=== PATIENT | male | born 1995 | race Caucasian/White ===

== ENCOUNTER 2019-08-26 15:50 | Emergency (ER) | payer SELFPAY ==
[2019-08-26 15:52] VITALS: BP 163/100; PULSE 119; RESP 18; TEMP 37.2; O2SAT 98; BMI 24.5
--- NOTE | 2019-08-26 17:20 | ED.VIS.GEN ---
History of Present Illness Chief Complaint: Upper Extremity Injury Informant: Patient Onset: Month(s) - 3 Context: Gradual Onset Timing: Intermittent Narrative: Patient is a 23-year-old male presenting with concerns of redness in his hands as well as feeling cold in his hands. This been going on for the past 3 months intermittently. He does not have associated pain, numbness or difficulty using his hands. Patient notes that when he puts his hands down the seem more red and they feel cold all the time. Patient is very concerned that there might be something more severe wrong with him which is why he came in. He notes he does have anxiety and is not sure if his anxiety is associated with his concern for his hands. He does not see a doctor regularly. He does have a history of alcohol abuse but stopped drinking of few months ago. He denies any tobacco or illicit drug use. He denies any systemic symptoms such as chest pain, shortness of breath, fever, chills, rash, GI or symptoms. Past Medical History - Allergies and Home Meds Allergies/Adverse Reactions: Allergies No Known Allergies Allergy (Verified 08/26/19 15:51) Primary Care Physician: Care Physician,No Primary [Primary Care Provider] - Past Medical History: None Surgical History: noncontributory Smoking Status: Current every day smoker Review of Systems All systems negative except as indicated Skin: Reports: - - Redness in his hands Physical Exam Vital Signs/Narrative: Vital Signs Temp Pulse Resp BP Pulse Ox 08/26/19 15:52 98.9 F 119 H 18 163/100 H 98 Inital Vital Signs reviewed: Yes General: Well nourished, Well developed, No Acute Distress Head: Normocephalic, Atraumatic Eyes: Perrl, EOMI ENT: Moist mucous membranes, No rhinorrhea Neck: Supple, Nontender Cardiovascular: Regular rate, Regular rhythm, No murmurs Respiratory: No distress, CTA bilaterally, Chest nontender Abdomen: Soft, Nontender, Nondistended, Normal bowel sounds Back: Nontender, Normal Inspection Extremities: Nontender, No edema Skin: Normal color, No rash, - - Wrist capillary refill, no cyanosis or pallor. Slightly more pronounced plethora of the hands but otherwise normal-appearing Neurological: Alert, Oriented x3, Cranial nerves II-XII grossly intact, Normal Strength, Normal Sensation Psychological: Normal affect, - - Anxious Diagnostic/Tx/Re-eval Laboratory Data 08/26/19 08/26/19 17:30 17:35 WBC 11.7 H RBC 5.02 Hgb 14.9 Hct 44.8 MCV 89.2 MCH 29.7 MCHC 33.3 RDW Std Deviation 42.0 RDW Coeff of Ana Paula 12.9 Plt Count 247 MPV 11.3 Immature Gran % (Auto) 0.300 Neut % (Auto) 72.8 H Lymph % (Auto) 20.5 Isabella % (Auto) 5.7 Eos % (Auto) 0.3 Baso % (Auto) 0.4 Absolute Neuts (auto) 8.5 H Absolute Lymphs (auto) 2.39 Nucleated RBC % 0 Sodium 140 Potassium 3.5 Chloride 109 H Carbon Dioxide 28.0 Anion Gap 3 L BUN 10 Creatinine 0.85 Estim Creat Clear Calc 139.56 Est GFR (MDRD) Af Amer 142 Est GFR (MDRD) Non-Af 118 BUN/Creatinine Ratio 11.8 Glucose 102 Calcium 8.9 TSH 0.83 - Medical Decision Making Patient is evaluated for concern of cold hands and redness in his hands. He appears nontoxic and in no acute distress. Patient is anxious but otherwise behaving normally. Physical exam is benign. He does have plethora of his hands when he brings him down to his side and then it improves when he raises his hand. I do not suspect any emergent process. I suspect this is a normal physiologic reaction. I am concerned that patient might be anxious and is fixated on these changes. Patient does not regularly see a doctor some screening labs are obtained including a TSH CBC and BMP. Patient is initially tachycardic. He has no signs of infection. TSH is normal. CBC shows only a minimally elevated white blood cell count. He does not have symptoms consistent with polycythemia. BMP is also grossly normal. Patient be discharged home with referral to PCP for outpatient follow-up. He is given a work note for today as he missed his shift to be here. Patient is counseled on signs and symptoms requiring return to the emergency room. Patient verbalizes agreement and understand this plan. Patient discharged home in stable and improved condition. ED Disposition - Plan for ED Patient: Disposition: Home or Assisted Living Diagnosis: Other skin changes Referrals: Care Physician,No Primary [Primary Care Provider] - Sloan Chavez MD [NON-STAFF] - Additional Instructions: Your lab work came back normal. I am not concerned for the this in your hands at this time. Please follow-up further with your primary care provider. Please quit smoking. Return to emergency room if you have further complaints or concerns.
[2019-08-26 17:35] LABS: Absolute Lymphocyte Count 2.39 X10^3/uL (0.83-4.51); Absolute Neutrophil Count 8.5 X10^3/uL (2.0-7.7); Basophil# 0.05 X10^3/uL; Basophil% 0.4 % (0-1); Eosinophil# 0.04 X10^3/uL; Eosinophils% 0.3 % (0-5); Hematocrit 44.8 % (40-54); Hemoglobin 14.9 g/dL (13.0-16.5); Lymphocyte # 2.39 X10^3/ul (4.0); Lymphocyte % 20.5 % (19-41); Mean Corp Hgb Conc 33.3 g/dL (32-36); Mean Corpuscular Hgb 29.7 pg (27.0-32.0); Mean Corpuscular Volume 89.2 fL (80-94); Mean Platelet Vol. 11.3 fl (6.2-12.0); Monocyte# 0.67 X10^3/uL; Monocyte% 5.7 % (0-10); NRBC Flagged by Analyzer 0 % (0-5); Neutrophil # 8.48 X10^3/uL (2.7-7.7); Neutrophil % 72.8 % (47-70); Platelet Count 247 K/mm3 (150-450); RBC Distribution Width CV 12.9 % (11.6-14.6); Red Blood Count 5.02 M/mm3 (4.6-6.2); White Blood Count 11.7 K/mm3 (4.4-11.0)
[2019-08-26 18:26] LABS: Anion Gap 3 (5-15); BUN 10 mg/dL (7-18); BUN/Creat Ratio 11.8 RATIO (10-20); Calcium,Total 8.9 mg/dL (8.5-10.1); Chloride 109 mmol/L (98-107); Creatinine, Serum 0.85 mg/dL (0.70-1.30); EST Glomerular Filtration Rate 118 mL/min (>60); Est Glom Filt Rate - Afr Amer 142 mL/min (>60); Estimated Creatinine Clearance 139.56 ml/min; Glucose 102 mg/dL (74-106); Potassium 3.5 mmol/L (3.5-5.1); Sodium Level 140 mmol/L (136-145); Thyroid Stim Hormone (TSH) 0.83 uIU/mL (0.358-3.74)
== END 2019-08-26 19:22 | disposition home or self-care (01) ==
PROVIDERS: Emergency Provider Emergency Medicine
DX: R23.9 Unspecified skin changes (principal); L53.9 Erythematous condition, unspecified; R00.0 Tachycardia, unspecified; F41.9 Anxiety disorder, unspecified
CPT/HCPCS: 36415; 80048; 84443; 85025; 99282

== ENCOUNTER 2019-09-01 23:55 | Emergency (ER) | payer OTHER, SELFPAY ==
[2019-09-01 23:57] VITALS: BP 134/80; PULSE 85; RESP 16; TEMP 36.6; O2SAT 100; BMI 26.6
--- NOTE | 2019-09-02 00:06 | ED.RN ---
CALLED [phone], NUMBER GIVEN BY PT TO ASK THE EVENT DECORATOR AND DESIGNER ON [facility] IF A DRUG TEST WAS NEEDED, I WAS UNABLE TO GET AN ANSWER. MESSAGE WAS LEFT WITH SUMA SOTO WITH HR
--- NOTE | 2019-09-02 00:13 | RAD_ITS ---
HISTORY: Smashed thumb at work. 3 images of the right thumb. No comparison imaging. Findings: Bony alignment is normal. Joint spaces are preserved. Cortices are intact. RAD/Finger(s) Min 2 Views IMPRESSION: Normal. at 0044 Reported and signed by: Butch Birmingham MD Electronically Signed: Butch Birmingham MD at 0:43 EDT Tel , Service support ,
--- NOTE | 2019-09-02 00:41 | ED.VIS.UPPEX ---
History of Present Illness Chief Complaint: Laceration Informant: Patient Occurred: Today - TRISHA Mechanism/Context: Injury, Work Related Context: Sudden Onset - caught in machine, crushed distal phalanx of right thumb Quality of Pain: Aching Location: R thumb Current Severity: Moderate Maximum Severity: Moderate Worsened by: palpation, moving Relieved by: remaining still Associated Symptoms: Negative for: Parasthesia, Weakness, Loss of Funtion Narrative: Accidentally caught in a machine at work. [id number]. Minor bleeding from wound. Tetanus Immunization: <5 years Past Medical History - Allergies and Home Meds Allergies/Adverse Reactions: Allergies No Known Allergies Allergy (Verified 09/01/19 23:59) Primary Care Physician: Care Physician,No Primary [Primary Care Provider] - Surgical History: noncontributory Smoking Status: Current every day smoker Drugs: None Review of Systems General: Denies: Chills, Fever Musculoskeletal: Reports: Extremity Pain. Denies: Swelling Skin: Reports: Wounds. Denies: Rash Neurological: Denies: Weakness, Parasthesia Physical Exam Vital Signs/Narrative: Vital Signs Temp Pulse Resp BP Pulse Ox 09/01/19 23:57 97.9 F 85 16 134/80 H 100 General: Well nourished, Well developed, - - Well-appearing, NAD Head: Normocephalic, Atraumatic Extremeties: Mild tenderness distal phalanx right thumb. Normal full function of extensor and flexors within the digit. No IP joint tenderness or other bony tenderness throughout the hand. Nail is normal. Abrasion to the radial aspect of the nail as well. Skin: Trauma - Superficial 1 cm curved laceration to the ulnar aspect of the distal phalanx/pad of the right thumb. More of an abrasion than laceration. Some nearby bruising. No subungual hematoma. Neurological: Alert, Oriented x3, Cranial nerves II-XII grossly intact, Normal Strength, Normal Sensation Psychological: Normal affect, Normal Mood Diagnostic/Tx/Re-eval On my interpretation, 3 view x-ray of the right thumb are normal showing no fracture. - Medical Decision Making X-rays are unremarkable. I do not think any of this needs repaired. There is no subungual hematoma or sign of nailbed laceration or indication to remove the nail. He is given ibuprofen and his wound is cleansed, dressed with bacitracin, given appropriate work restrictions and follow-up. ED Disposition - Plan for ED Patient: Disposition: Home or Assisted Living Diagnosis: Abrasion of right thumb, Contusion of right thumb Instructions: LACERATION, Small/superficial, Not sutured [facility]errals: [facility]] - 2 Days for wound check Additional Instructions: Keep covered with antibiotic ointment while working.
[2019-09-02 00:56] VITALS: PULSE 18
== END 2019-09-02 01:07 | disposition home or self-care (01) ==
PROVIDERS: Emergency Provider Emergency Medicine
DX: S60.311A Abrasion of right thumb, initial encounter (principal); S60.011A Contusion of right thumb without damage to nail, initial encounter; W31.9XXA Contact with unspecified machinery, initial encounter; Y93.9 Activity, unspecified; Y92.9 Unspecified place or not applicable; F17.200 Nicotine dependence, unspecified, uncomplicated
CPT/HCPCS: 73140; 99282

== ENCOUNTER 2022-02-12 13:06 | Emergency (ER) | payer SELFPAY ==
[2022-02-12 13:07] VITALS: BP 159/109; PULSE 160; RESP 15; TEMP 37.7; O2SAT 99; BMI 31.1
--- NOTE | 2022-02-12 13:14 | ED.RN ---
PT HR 146 AND SUSTAINING. MD AT BEDSIDE. ISA MORENO RT AT BEDSIDE. 1000 NS OPEN 20G LAC 6 MG ADENOCARD 1314 IVP AND FLUSH. HR 159, BP 180/101, O2 99% 12 MG ADENOCARD 1318 IVP AND FLUSH. HR 167 12 MG ADENOCARD 1320 IVP AND FLUSH. HR 173, BP 177/97 1323 HR 140
--- NOTE | 2022-02-12 13:24 | EKG12_ITS ---
Test Reason : TACHY Blood Pressure : / mmHG Vent. Rate : 144 BPM Atrial Rate : 144 BPM P-R Int : 130 ms QRS Dur : 088 ms QT Int : 280 ms P-R-T Axes : 052 058 065 degrees QTc Int : 433 ms Sinus tachycardia Nonspecific ST abnormality Abnormal ECG Confirmed by PEGGY NICHOLSON, MICK ([id number]), index editor RENNY PACHECO ([id number]) on 02/14/2022 12:59:05 P M Referred By: KAMARI Confirmed By:DORI WOODS MD
--- NOTE | 2022-02-12 13:25 | EX.ED.DYSGE1 ---
HPI History of Present Illness Chief Complaint: Palpitations Narrative Narrative: Patient who denies significant past medical history presents with palpitations and rapid heart rate. He states that this is happened to him previously, but it usually resolves on its own after he paces at work. One time it lasted a few hours. 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 At first, he felt his heart skipping a beat, but now he feels fast palpitations. He denies any chest pain or shortness of breath. No leg swelling. No exacerbating or alleviating factors. Of note, he does state that he drinks alcohol on a daily basis, his last drink was last evening. He has been a daily drinker of alcohol for the last 3 years. He presents because of the rapid heart rate and palpitations. [facility] Home Medications NK 08/26/19 [History Last Taken Unknown] Allergy/AdvReac Type Severity Reaction Status Date / Time No Known Allergies Allergy Verified 09/01/19 23:59 Social History Smoking Status: Current every day smoker tobacco type: cigarettes ROS ROS ED ROS Narrative Constitutional: No fever, no chills. HEENT: No sore throat. No neck pain. No loss of vision. No rhinorrhea. Cardiovascular: No chest pain. Positive palpitations and rapid heart rate. Initially, felt heart skipping a beat. No pedal edema. Respiratory: No cough, no shortness of breath. Abdominal: No abdominal pain. No nausea. No vomiting. Genitourinary: No dysuria. No hematuria. Musculoskeletal: No myalgias. No arthralgias. Neurologic: No headaches. No dizziness. No lightheadedness. Skin: No rash. No change in color. Psychiatric: No depression. No anxiety. EXAM Physical Exam Narrative Exam Narrative: Afebrile. Vital signs noted. HEENT: Normocephalic. Atraumatic. PERRL, EOMI. Neck soft and supple. No point tenderness or step off. Cardiovascular: Regular tachycardia in the 150s to 160s, no murmurs, rubs, or gallops appreciated. Respiratory: No tachypnea. Lungs clear to auscultation bilaterally. Gastrointestinal: Abdomen soft, nontender, with normoactive bowel sounds. No rebound or guarding. Neurological: Awake. Alert. Nonfocal, nonlateralizing. Skin: No rash. Normal color. No pallor. Musculoskeletal: No pedal edema. Full range of motion extremities. Const Vital Signs: 02/12/22 13:07 02/12/22 13:29 02/12/22 13:31 Temperature 99.9 F H Temperature Source Temporal Pulse Rate 160 H 125 H Respiratory Rate 15 19 H Blood Pressure 159/109 H 178/97 H Blood Pressure Mean 125 124 Pulse Ox 99 99 Oxygen Delivery Method Room Air Room Air Room Air 02/12/22 14:09 02/12/22 15:07 Temperature Temperature Source Pulse Rate 100 94 Respiratory Rate 14 17 Blood Pressure 134/106 H 140/75 H Blood Pressure Mean 115 96 Pulse Ox 98 98 Oxygen Delivery Method Room Air Room Air MDM MDM MDM Narrative Medical decision making narrative: Upon arrival to the room, he was placed on a advertising strategist. His heart rate was in the 150s to 160s. He was given 6 of Adenocard with no resultant change. There was a slight increase in his heart rate to the 170s. An additional 12 mg was given x2. It appears on a rhythm strip that he slowed down for a brief moment and it appeared sinus in nature, but his heart rate did not break. He is not hypotensive. Comprehensive work-up was pursued. He will be given a beta-glenys in the form of Lopressor in attempt to slow his heart rate down. There could be some anxiety component with this versus alcohol withdrawal, versus dehydration. Patient has a leukocytosis with a white count elevated at 26.9. His hemoglobin is normal at 16.1 with a hematocrit of 46.2. His lymphocyte count is normal but he has elevated absolute neutrophils and absolute lymphocytes. D-dimer is negative at 0.34. His electrolyte panel is grossly unremarkable except for glucose of 122 with a normal anion gap of 9. Troponin is less than 3. BNP is also negative. Urinalysis negative for leukocytes and nitrites, no ketones. Chest x-ray interpreted by myself shows no acute process. Given his leukocytosis, I am unsure as to where this is originating. I did CT his abdomen and pelvis because he states he was having diarrhea. This shows no acute process. Furthermore, his abdomen remains soft. His blood pressure has come down well with his heart rate which appears to be normal sinus on the monitor. It is 86 bpm. I do feel that there is some component of anxiety related to this. Regardless, given his leukocytosis I discussed this with Dr. Lyon. Blood cultures will be obtained. Patient feels well and would like to be discharged. I stressed the importance of following up with hematology for repeat blood work in 1 week. Return instructions to the emergency department were reviewed. Disposition is discharged home in stable condition. Of note, the patient did state he was a daily alcohol drinker. I did offer him detox. He declined. He was told to return to the emergency department at any time should he change his mind. Lab Data Attestation: I reviewed the patient's lab results. Labs: Laboratory Results - last 24 hr 02/12/22 02/12/22 02/12/22 13:10 13:10 13:10 WBC 26.9 H RBC 5.16 Hgb 16.1 Hct 46.2 MCV 89.5 MCH 31.2 MCHC 34.8 RDW Std Deviation 41.7 RDW Coeff of Ana Paula 12.5 Plt Count 346 MPV 11.1 Immature Gran % (Auto) 0.500 Neut % (Auto) 68.2 Lymph % (Auto) 23.5 Riley % (Auto) 6.6 Eos % (Auto) 0.9 Baso % (Auto) 0.3 Absolute Neuts (auto) 18.4 H Absolute Lymphs (auto) 6.34 H Nucleated RBC % 0 Diff Path Review May foll Platelet Estimate ADEQUATE RBC Morphology NORM C+C D-Dimer Quant (PE/DVT) 0.34 Sodium 139 Potassium 3.5 Chloride 106 Carbon Dioxide 24.0 Anion Gap 9 BUN 10 Creatinine 0.97 Estim Creat Clear Calc 119.16 Est GFR (MDRD) Af Amer 120 Est GFR (MDRD) Non-Af 99 BUN/Creatinine Ratio 10.3 Glucose 122 H Calcium 9.6 Troponin I High Sens B-Natriuretic Peptide Urine Color Urine Clarity Urine pH Ur Specific [place] Urine Protein Urine Glucose (UA) Urine Ketones Urine Occult Blood Urine Nitrite Urine Bilirubin Urine Urobilinogen Ur Leukocyte Esterase 02/12/22 02/12/22 02/12/22 13:10 13:10 15:20 WBC RBC Hgb Hct MCV MCH MCHC RDW Std Deviation RDW Coeff of Ana Paula Plt Count MPV Immature Gran % (Auto) Neut % (Auto) Lymph % (Auto) Riley % (Auto) Eos % (Auto) Baso % (Auto) Absolute Neuts (auto) Absolute Lymphs (auto) Nucleated RBC % Diff Path Review Platelet Estimate RBC Morphology D-Dimer Quant (PE/DVT) Sodium Potassium Chloride Carbon Dioxide Anion Gap BUN Creatinine Estim Creat Clear Calc Est GFR (MDRD) Af Amer Est GFR (MDRD) Non-Af BUN/Creatinine Ratio Glucose Calcium Troponin I High Sens < 3 L B-Natriuretic Peptide < 2.0 Urine Color Yellow Urine Clarity Clear Urine pH 6.5 Ur Specific [place] 1.010 Urine Protein 15 H Urine Glucose (UA) Normal Urine Ketones Negative Urine Occult Blood Negative Urine Nitrite Negative Urine Bilirubin Negative Urine Urobilinogen Normal Ur Leukocyte Esterase Negative Radiography Diagnostic Testing: Clinical Impression(s) from Imaging Studies Chest X-Ray 02/12/22 13:48 IMPRESSION: Normal x-ray examination of the chest. Electronically Signed: Edilberto Valenzuela MD at 14:00 EDT , Abdomen/Pelvis CT 02/12/22 14:12 IMPRESSION: Mild hepatomegaly and diffuse fatty infiltration of the liver. Electronically Signed: Edilberto Valenzuela MD at 14:41 EDT , Discharge Plan Triage Chief Complaint: Palpitations ED Provider: Rob Black Dx/Rx/DC Orders Clinical Impression: Palpitations, Sinus tachycardia, Leukocytosis, PAT (paroxysmal atrial tachycardia) Instructions: ED Palpitations, ED Tachycardia: PAT Prescriptions: No Action NK RF: 0 Primary Care Provider: Care Physician,No Primary Referrals: Paul Lyon MD [NON-STAFF] - 1 Week Care Physician,No Primary [Primary Care Provider] - Activity Restrictions/Additional Instructions: You had an elevated WBC count today. Please follow-up with Dr. Lyon in 1 week for repeat blood work. Disposition Disposition: Home, Self Care
[2022-02-12 13:29] VITALS: BP 178/97; PULSE 125; RESP 19; O2SAT 99
[2022-02-12] MEDS: 0.9% Normal Saline 1,000 ML 1000 ML IV (13:32)
[2022-02-12 13:38] LABS: Absolute Lymphocyte Count 6.34 X10^3/uL (0.83-4.51); Absolute Neutrophil Count 18.4 X10^3/uL (2.0-7.7); Basophil# 0.09 X10^3/uL; Basophil% 0.3 % (0-1); Eosinophil# 0.23 X10^3/uL; Eosinophils% 0.9 % (0-5); Hematocrit 46.2 % (40-54); Hemoglobin 16.1 g/dL (13.0-16.5); Lymphocyte # 6.34 X10^3/ul (0.83-4.51); Lymphocyte % 23.5 % (19-41); Mean Corp Hgb Conc 34.8 g/dL (32-36); Mean Corpuscular Hgb 31.2 pg (27.0-32.0); Mean Corpuscular Volume 89.5 fL (80-94); Mean Platelet Vol. 11.1 fl (6.2-12.0); Monocyte# 1.77 X10^3/uL; Monocyte% 6.6 % (0-10); NRBC Flagged by Analyzer 0 % (0-5); Neutrophil # 18.37 X10^3/uL (2.7-7.7); Neutrophil % 68.2 % (47-70); POSITIVE DIFFERENTIAL YES; Platelet Count 346 K/mm3 (150-450); RBC Distribution Width CV 12.5 % (11.6-14.6); RBC Distribution Width SD 41.7 fl (35.1-43.9); Red Blood Count 5.16 M/mm3 (4.6-6.2); White Blood Count 26.9 K/mm3 (4.4-11.0)
[2022-02-12 13:45] LABS: Differential Indicated SCAN CRITERIA MET
[2022-02-12] MEDS: Metoprolol Tartrate 5 MG/5 ML Vial IV (13:48)
--- NOTE | 2022-02-12 13:48 | RAD_ITS ---
STUDY: X-RAY CHEST REASON FOR EXAM: Male, 26 years old. Chest pain TECHNIQUE: Single AP portable view of the chest. COMPARISON: None. FINDINGS: EKG electrodes are seen. The lungs are clear and expanded. There is no demonstrated pleural abnormality. Normal size heart. Normal mediastinum and allie. Normal visualized pulmonary arteries. Normal visualized aortic arch and descending thoracic aorta. Normal visualized thoracic spine. Normal visualized ribs, clavicles, and shoulders. There is no demonstrated abnormality of the visualized soft tissue structures of the upper abdomen. RAD/Chest 1 View (Portable) IMPRESSION: Normal x-ray examination of the chest. Electronically Signed: Edilberto Valenzuela MD at 14:00 EDT ,
[2022-02-12 13:50] LABS: D-Dimer Quantitative (DVT/PE) 0.34 FEU/ug/m (0.27-0.49)
[2022-02-12 13:51] LABS: Anion Gap 9 (5-15); BUN 10 mg/dL (7-18); BUN/Creat Ratio 10.3 RATIO (10-20); Calcium,Total 9.6 mg/dL (8.5-10.1); Chloride 106 mmol/L (98-107); Creatinine, Serum 0.97 mg/dL (0.70-1.30); EST Glomerular Filtration Rate 99 mL/min (>60); Est Glom Filt Rate - Afr Amer 120 mL/min (>60); Estimated Creatinine Clearance 119.16 ml/min; Glucose 122 mg/dL (74-106); Potassium 3.5 mmol/L (3.5-5.1); Sodium Level 139 mmol/L (136-145)
--- NOTE | 2022-02-12 13:52 | ED.RN ---
1345: CRISTEL BENITES. GIVE 1 DOSE OF METOPROLOL AND REPORT PTS HR BEFORE ADMIN 2ND OR 3RD DOSE
--- NOTE | 2022-02-12 13:59 | ED.RN ---
1358: VORB PER KAMARI, HOLD DOSE 2 AND 3 OF SCHEDULED METOPROLOL. PT HR CURRENTLY 100
[2022-02-12 14:02] LABS: Troponin-I HS (w/2H Reflex) < 3 pg/mL (3.0-78.0)
[2022-02-12 14:03] LABS: BNP,B-Type NATRIURETIC PEPTIDE < 2.0 pg/mL (0-100)
[2022-02-12 14:09] VITALS: BP 134/106; PULSE 100; RESP 14; O2SAT 98
--- NOTE | 2022-02-12 14:12 | CT_ITS ---
STUDY: CT ABDOMEN AND PELVIS WITH CONTRAST REASON FOR EXAM: Male, 26 years old. Abdominal pain and diarrhea. Palpitations. RADIATION DOSAGE (If Supplied By Facility): CTDIvol = ( 16.145 ) mGy, DLP = ( 1256.72 ) mGycm TECHNIQUE: Transaxial images were obtained from the dome of the diaphragm to the symphysis pubis without oral contrast. IV 100mL Isovue-370 was administered. Sagittal and coronal images were reconstructed. Individualized dose optimization techniques were used for this CT. COMPARISON: None. FINDINGS: Minimal degree of increased markings at the lung bases suggestive of dependent bibasilar atelectasis. The visualized portions of the heart are within normal limits. There is decreased attenuation of the liver consistent with steatosis. Mild hepatomegaly. Normal gallbladder and extrahepatic biliary system. Normal spleen. Normal pancreas. Normal bilateral adrenal glands. Normal right kidney. Normal left kidney. Normal visualized stomach. Normal small intestine. Moderate amount of fecal material is seen in colon. Lack of oral contrast limits the evaluation of the colon. The appendix is visualized and appears normal. Normal abdominal aorta. Normal inferior vena cava. Normal retroperitoneum. Distended urinary bladder. There is a small umbilical hernia containing fat. Normal osseous structures. CT/Abdomen/Pelvis W IV Cont ONLY IMPRESSION: Mild hepatomegaly and diffuse fatty infiltration of the liver. Electronically Signed: Edilebrto Valenzuela MD at 14:41 EDT ,
[2022-02-12 14:13] LABS: Platelet Estimate ADEQUATE (ADEQ); Red Cell Morphology NORM C+C NORMAL (NORM C&C)
--- NOTE | 2022-02-12 14:35 | NURSING ---
NO OLD EKGS
[2022-02-12 15:07] VITALS: BP 140/75; PULSE 94; RESP 17; O2SAT 98
[2022-02-12] MEDS: 0.9% Normal Saline 1,000 ML 999 ML IV (15:27)
[2022-02-12 15:28] LABS: Bacteria 0 SEEN /hpf (None Seen); Mucous, Urine 0 SEEN /hpf (<or=2+); Red Blood Cells-Urine 0 SEEN /hpf (0-5); Squamous Epithelial Cells - UA 0 SEEN /hpf (0-5); White Blood Cells 0 SEEN /hpf (0-5)
[2022-02-12 15:33] LABS: Color, Urine Yellow (Yellow); Glucose, Dipstick Normal (Normal); Ketone-Dipstick Negative (Negative); Leukocyte Esterase-Dipstick Negative /ul (Negative); Nitrite-Dipstick Negative (Negative); Occult Blood-Urine Negative /ul (Negative); Protein-Dipstick 15 mg/dl (Negative); Urine Bilirubin Dipstick Negative (Negative); Urine Clarity Clear (Clear); Urine Urobilinogen Normal (Normal); Urine pH 6.5 (5.0 - 8.0)
[2022-02-12 15:41] LABS: Reflex Troponin-HS? (from REC) Y
[2022-02-12 16:31] VITALS: BP 127/73; PULSE 86; RESP 18; O2SAT 99
[2022-02-12 16:37] VITALS: BP 127/73; PULSE 85; RESP 16; O2SAT 97
[2022-02-13 11:58] LABS: Pathologist Review Reviewed
== END 2022-02-12 16:39 | disposition home or self-care (01) ==
PROVIDERS: Emergency Provider Emergency Medicine; Visit Provider Emergency Medicine
DX: I47.1 Supraventricular tachycardia (principal); D72.829 Elevated white blood cell count, unspecified; R19.7 Diarrhea, unspecified; F41.9 Anxiety disorder, unspecified; F17.210 Nicotine dependence, cigarettes, uncomplicated
CPT/HCPCS: 71045; 74177; 80048; 81001; 83880; 84484; 85025; 85379; 87040; 93005; 96360; 96361; 99284; J7030; A4216; J0153

== ENCOUNTER 2022-03-02 08:42 | Emergency (ER) | payer MEDICAID, SELFPAY ==
[2022-03-02 08:43] VITALS: BP 154/84; PULSE 120; RESP 16; TEMP 36.7; O2SAT 97; BMI 31.6
--- NOTE | 2022-03-02 09:03 | EKG12_ITS ---
Test Reason : PALP Blood Pressure : / mmHG Vent. Rate : 111 BPM Atrial Rate : 111 BPM P-R Int : 146 ms QRS Dur : 090 ms QT Int : 334 ms P-R-T Axes : 057 055 068 degrees QTc Int : 454 ms Sinus tachycardia with occasional Premature ventricular complexes Otherwise normal ECG Confirmed by ANITA NICHOLSON, JONATAN ([id number]), fan mail editor RENNY PACHECO ([id number]) on 03/03/2022 1:14:25 PM Referred By: Confirmed By:JONATAN HOWARD MD
--- NOTE | 2022-03-02 09:05 | EX.ED.DYSGE1 ---
HPI History of Present Illness Chief Complaint: Palpitations Informant: patient Onset/Context/Timing Onset: Weeks Context: Gradual Onset Narrative Narrative: Patient presents secondary to palpitations. He states years ago he had developed palpitations but really had not had issues into the last month. He was seen in the emergency room approximately 2-1/2 weeks ago with heart rate around 160. He was given adenosine with no significant improvement. He was given beta-glenys and IV fluids and his heart rate came down into the 80s. He states he continues to have some intermittent palpitations. No chest pain. He has been cutting back on his alcohol consumption. He quit smoking. [facility] Medical History no medical history no medical history Home Medications NK 08/26/19 [History Last Taken Unknown] Allergy/AdvReac Type Severity Reaction Status Date / Time No Known Allergies Allergy Verified 03/02/22 08:44 Social History (Updated 03/02/22 @ 09:[address] Tamar Adrian MD) Smoking Status: Former smoker ROS ROS ED Constitutional Constitutional ED: Denies chills or fever(s) Eyes Eyes: Denies change in vision ENT ENT ED: Denies sore throat Cardiovascular Cardiovascular: Reports palpitations and racing heartbeat; Denies chest pain Respiratory/Chest Respiratory/Chest: Denies cough or dyspnea Gastrointestinal Gastrointestinal: Denies abdominal pain, nausea or vomiting Genitourinary Genitourinary ED: Denies dysuria Musculoskeletal Musculoskeletal: Denies back pain or neck pain Integumentary Denies rash Neurologic Neurologic: Denies headache(s) or weakness Psychiatric Psychiatric: Reports anxiety Allergic/Immunologic Allergic/Immunologic ED: Denies urticaria EXAM Physical Exam Const Vital Signs: 03/02/22 08:43 03/02/22 09:14 03/02/22 10:18 Temperature 98.0 F Temperature Source Temporal Pulse Rate 120 H 74 Respiratory Rate 16 Respiratory Effort Normal Non-Labored Respiratory Pattern Normal Blood Pressure 154/84 H Blood Pressure Mean 107 Pulse Ox 97 Oxygen Delivery Method Room Air Positive well nourished and well developed General Appearance ED: well developed HEENT Reports moist mucous membranes Eyes PERRL and EOMs intact bilaterally Neck supple Chest Wall inspection of chest normal and palpation of chest normal Resp normal respiratory effort Cardio regular rhythm Rate: tachycardic GI non-tender Palpation: soft Extremity normal to inspection Neuro oriented x3 Sensorium / Orientation: alert Psych mental status grossly normal Mood & Affect: anxious Skin no rashes or lesions noted MDM MDM MDM Narrative Medical decision making narrative: Patient given IV fluids. EKG, lab work obtained. I did review his visit from 3 weeks ago. At that time patient had been given adenosine for heart rates in the 150s to 160s, but did not break. Heart rate improved with IV fluids and metoprolol. It was felt that anxiety was playing a significant role in the patient's tachycardia. Lab Data Attestation: I reviewed the patient's lab results. Labs: Laboratory Results - last 24 hr 03/02/22 03/02/22 09:16 09:16 WBC 10.9 RBC 5.02 Hgb 15.5 Hct 44.7 MCV 89.0 MCH 30.9 MCHC 34.7 RDW Std Deviation 39.8 RDW Coeff of [place] 12.3 Plt Count 307 MPV 10.8 Immature Gran % (Auto) 0.500 Neut % (Auto) 69.9 Lymph % (Auto) 20.2 [place] % (Auto) 7.5 Eos % (Auto) 1.4 Baso % (Auto) 0.5 Absolute Neuts (auto) 7.6 Absolute Lymphs (auto) 2.20 Nucleated RBC % 0 Sodium 138 Potassium 3.7 Chloride 107 Carbon Dioxide 24.0 Anion Gap 7 BUN 8 Creatinine 0.86 Estim Creat Clear Calc 134.40 Est GFR (MDRD) Af Amer 138 Est GFR (MDRD) Non-Af 114 BUN/Creatinine Ratio 9.3 L Glucose 109 H Calcium 9.7 Magnesium 2.1 Total Bilirubin 0.80 Direct Bilirubin 0.18 AST 27 ALT 65 H Alkaline Phosphatase 75 Total Protein 8.8 H Albumin 4.5 Globulin 4.3 H TSH 1.58 EKG Initial EKG: Attestation: I personally reviewed and interpreted this EKG as follows: Interpretation: Sinus Tachycardia (Sinus tachycardia at 111 with occasional PVCs. No ST change. Normal [place] interval) Treatment and Re-Evaluation Narrative: On repeat evaluation heart rate is in the 90s. Watch in the air sampling and monitoring I see very few if any PVCs. Patient states he still feels occasional palpitations. Lab work at this time is unremarkable including normal potassium and magnesium. TSH is normal at 1.58. Patient had significant leukocytosis on the last visit which is corrected now to 10.9. Patient states he was just told that his insurance was verified and he plans to make an appointment to see a PCP in the area. He will be referred to cardiology as well. Discharge Plan Triage Chief Complaint: Palpitations ED Provider: Tamar Adrian Dx/Rx/DC Orders Clinical Impression: Palpitations, PVC (premature ventricular contraction) Instructions: Premature Ventricular Contractions, ED Palpitations Prescriptions: No Action NK RF: 0 Primary Care Provider: Care Physician,No Primary Referrals: Jamie Anthony MD [STAFF PHYSICIAN] - 1-2 Weeks Care Physician,No Primary [Primary Care Provider] - Disposition Disposition: Home, Self Care Discharge Date/Time: 03/02/22 10:19
[2022-03-02] MEDS: 0.9% Normal Saline 1,000 ML 1000 ML IV (09:18)
[2022-03-02 09:23] LABS: Absolute Neutrophil Count 7.6 X10^3/uL (2.0-7.7); Basophil# 0.06 X10^3/uL; Basophil% 0.5 % (0-1); Eosinophil# 0.15 X10^3/uL; Eosinophils% 1.4 % (0-5); Hematocrit 44.7 % (40-54); Hemoglobin 15.5 g/dL (13.0-16.5); Lymphocyte % 20.2 % (19-41); Mean Corp Hgb Conc 34.7 g/dL (32-36); Mean Corpuscular Hgb 30.9 pg (27.0-32.0); Mean Platelet Vol. 10.8 fl (6.2-12.0); Monocyte# 0.82 X10^3/uL; Monocyte% 7.5 % (0-10); NRBC Flagged by Analyzer 0 % (0-5); Neutrophil # 7.63 X10^3/uL (2.7-7.7); Neutrophil % 69.9 % (47-70); Platelet Count 307 K/mm3 (150-450); RBC Distribution Width CV 12.3 % (11.6-14.6); RBC Distribution Width SD 39.8 fl (35.1-43.9); Red Blood Count 5.02 M/mm3 (4.6-6.2); White Blood Count 10.9 K/mm3 (4.4-11.0)
[2022-03-02 09:48] LABS: AST(SGOT) 27 U/L (15-37); Alanine Aminotransfer ALT/SGPT 65 U/L (16-61); Albumin, Serum 4.5 g/dL (3.2-5.0); Alkaline Phosphatase 75 U/L (45-117); Anion Gap 7 (5-15); BUN 8 mg/dL (7-18); BUN/Creat Ratio 9.3 RATIO (10-20); Bilirubin, Direct 0.18 mg/dL (0.00-0.30); Calcium,Total 9.7 mg/dL (8.5-10.1); Chloride 107 mmol/L (98-107); Creatinine, Serum 0.86 mg/dL (0.70-1.30); EST Glomerular Filtration Rate 114 mL/min (>60); Est Glom Filt Rate - Afr Amer 138 mL/min (>60); Globulin 4.3 g/dL (2.2-4.2); Glucose 109 mg/dL (74-106); Magnesium 2.1 mg/dL (1.6-2.6); Potassium 3.7 mmol/L (3.5-5.1); Protein, Total 8.8 g/dL (6.4-8.2); Sodium Level 138 mmol/L (136-145); Thyroid Stim Hormone (TSH) 1.58 uIU/mL (0.358-3.74)
[2022-03-02 10:18] VITALS: PULSE 74
== END 2022-03-02 10:19 | disposition home or self-care (01) ==
PROVIDERS: Emergency Provider Emergency Medicine; Visit Provider Emergency Medicine
DX: I49.3 Ventricular premature depolarization (principal); Z87.891 Personal history of nicotine dependence
CPT/HCPCS: 80048; 80076; 83735; 84443; 85025; 93005; 96360; 99284; J7030; A4216

== ENCOUNTER 2022-08-06 21:10 | Emergency (ER) | payer SELFPAY ==
[2022-08-06 21:12] VITALS: BP 152/97; PULSE 103; RESP 15; TEMP 36.6; O2SAT 98; BMI 32.5
--- NOTE | 2022-08-06 21:58 | EX.ED.GUMALE ---
HPI History of Present Illness Chief Complaint: Male Pain/Injury Informant: patient Narrative Narrative: 26-year-old male arriving to the emergency department out of concern for trichomonas infection. Patient has been having sex with a variety of individuals and is concerned he may have trichomonas. He states that 2 partners ago tested positive for trichomonas but the last one did not have any symptoms. He denies any penile discharge or lesions or dysuria. The patient states that he has never had an STD. PFSH PFSH Medical History no medical history Home Medications NK 08/26/19 [History Last Taken Unknown] Allergy/AdvReac Type Severity Reaction Status Date / Time No Known Allergies Allergy Verified 08/06/22 21:14 Social History (Updated 08/06/22 @ 22:[address] León Lopez, DO) current gender identity: male Smoking Status: Current every day smoker tobacco type: e-cigarettes ROS ROS ED Constitutional Constitutional ED: Denies chills, fever(s) or weight loss Eyes Eyes: Denies change in vision or diplopia ENT ENT ED: Denies ear pain, rhinorrhea or sore throat Cardiovascular Cardiovascular: Denies chest pain, orthopnea, palpitations or racing heartbeat Respiratory/Chest Respiratory/Chest: Denies cough, dyspnea or orthopnea Gastrointestinal Gastrointestinal: Denies abdominal pain, diarrhea, nausea or vomiting Genitourinary Genitourinary ED: Denies dysuria, hematuria or urinary frequency Musculoskeletal Musculoskeletal: Denies arthralgias or myalgias Integumentary Denies abscess or rash Neurologic Neurologic: Denies headache(s) or weakness Psychiatric Psychiatric: Denies anxiety, depression, suicidal ideation or suicidal thoughts Endocrine Endocrinology: Denies polydipsia, polyphagia or polyuria Allergic/Immunologic Allergic/Immunologic ED: Denies mouth swelling, tongue swelling or urticaria EXAM Physical Exam Const Vital Signs: 08/06/22 21:12 Temperature 97.8 F Temperature Source Temporal Pulse Rate 103 H Respiratory Rate 15 Blood Pressure 152/97 H Blood Pressure Mean 115 Pulse Ox 98 Oxygen Delivery Method Room Air Positive well nourished and well developed General Appearance ED: well developed HEENT Reports normocephalic, head/scalp atraumatic and moist mucous membranes Eyes PERRL and EOMs intact bilaterally Neck no lymphadenopathy, supple and no JVD Resp normal respiratory effort and clear to auscultation bilaterally Cardio regular rate, regular rhythm and no murmurs GI normal to inspection, nondistended, normoactive bowel sounds and non-tender Palpation: soft Narrative: Penile exam shows a circumcised male. There is no lesions no discharge. Testicular exam is normal Back/Spine no CVA tenderness and normal ROM Extremity normal to inspection General Extremety ED: Negative for edema General Extremity: Negative for edema Neuro oriented x3 and CN's II-XII intact bilaterally Sensorium / Orientation: alert Motor Exam: strength 5/5 throughout Psych mental status grossly normal Mood & Affect: Negative for depressed or tearful Skin no rashes or lesions noted and no wounds MDM MDM MDM Narrative Medical decision making narrative: Patient will be tested for gonorrhea chlamydia have a formal UA as well as HIV. He will not be required to stay here in the emergency department as I feel like these are most likely to be negative. Should they be positive I will call him later tonight with treatment options. He is comfortable with this plan and is in agreement with it Discharge Plan Triage Chief Complaint: Male Pain/Injury ED Provider: León Lopez Dx/Rx/DC Orders Clinical Impression: STD exposure Instructions: STI Prescriptions: No Action NK Primary Care Provider: Care Physician,No Primary Referrals: Venkatesh Cowan MD [Med Staff - Erosion Control Coordinator] - As Needed Care Physician,No Primary [Primary Care Provider] - Disposition Disposition: Home, Self Care
[2022-08-06 22:08] LABS: Mucous, Urine 0 SEEN /hpf (<or=2+); Red Blood Cells-Urine 0 SEEN /hpf (0-5); White Blood Cells 0 SEEN /hpf (0-5)
[2022-08-06 22:11] LABS: Color, Urine Yellow (Yellow); Glucose, Dipstick Normal (Normal); Ketone-Dipstick Negative (Negative); Leukocyte Esterase-Dipstick Negative /ul (Negative); Nitrite-Dipstick Negative (Negative); Occult Blood-Urine Negative /ul (Negative); Protein-Dipstick Negative (Negative); Urine Bilirubin Dipstick Negative (Negative); Urine Clarity Clear (Clear); Urine Urobilinogen Normal (Normal)
[2022-08-06 22:21] LABS: Bacteria RARE /hpf (None Seen); Squamous Epithelial Cells - UA 0-5 SEEN /hpf (0-5)
[2022-08-06 23:19] LABS: HIV - WCH Non-Reactive (Nonreactive)
[2022-08-07 00:17] LABS: Chlamydia Trachomatis by PCR Negative (Negative); Neisserai gonorrhoeae by PCR Negative (Negative); Probe Check PASS; Sample Adequacy Control PASS; Specimen Processing Control PASS
== END 2022-08-06 22:15 | disposition home or self-care (01) ==
PROVIDERS: Emergency Provider Emergency Medicine; Visit Provider Emergency Medicine
DX: Z20.2 Contact with and (suspected) exposure to infections with a predominantly sexual mode of transmission (principal); F17.290 Nicotine dependence, other tobacco product, uncomplicated; Z72.51 High risk heterosexual behavior
CPT/HCPCS: 36415; 81001; 86703; 87491; 87591; 99282

== ENCOUNTER 2024-02-07 23:42 | Emergency (ER) | payer MEDICAID, SELFPAY ==
[2024-02-07 23:45] VITALS: BP 153/91; PULSE 121; RESP 16; TEMP 36.4; O2SAT 97; BMI 30.8
[2024-02-08] VITALS (10 sets, daily range): BP systolic 136–165; BP diastolic 62–89; PULSE 79–98; RESP 16–18; TEMP 36.2–36.6; O2SAT 97–100
--- NOTE | 2024-02-08 00:19 | EX.ED.VIS.PS ---
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 He is working a lot but still way behind on bills, with significant financial problems, according to police, but according to the patient, just life. He does not have a history depression, does not see a counselor, does not do any drugs or take any prescriptions, just alcohol tonight. Does not drink daily. He states he drank a lot tonight. Denies any recent illness except for COVID 1-2 months ago that he got over after about 2 or 3 days of symptoms that were mild. [facility] Medical History Anxiety Depression Murmur SVT (supraventricular tachycardia) Home Medications NK 08/26/19 [History Last Taken Unknown] Allergy/AdvReac Type Severity Reaction Status Date / Time No Known Allergies Allergy Verified 02/07/24 23:54 Social History Smoking Status: Current every day smoker tobacco type: cigarettes and e-cigarettes ROS ROS ED Constitutional Constitutional ED: Denies chills or fever(s) Eyes Eyes: Denies change in vision or diplopia ENT ENT ED: Denies rhinorrhea or sore throat Cardiovascular Cardiovascular: Denies chest pain or palpitations Respiratory/Chest Respiratory/Chest: Denies cough or dyspnea Gastrointestinal Gastrointestinal: Denies abdominal pain, diarrhea, nausea or vomiting Genitourinary Genitourinary ED: Denies dysuria or hematuria Musculoskeletal Musculoskeletal: Denies back pain or neck pain Integumentary Denies abscess or rash Neurologic Neurologic: Denies headache(s), paresthesias or weakness Psychiatric Psychiatric: Reports depression, suicidal ideation and suicidal thoughts; Denies homicidal ideation EXAM Physical Exam Const Vital Signs: 02/07/24 23:45 02/08/24 00:42 Temperature 97.6 F L Temperature Source Temporal Pulse Rate 121 H 98 Respiratory Rate 16 16 Blood Pressure 153/91 H 145/89 H Blood Pressure Mean 111 107 Pulse Ox 97 100 Oxygen Delivery Method Room Air Room Air Positive well nourished and well developed Constitutional Narrative: Cooperative, pleasantly intoxicated, no distress General Appearance ED: well developed and NAD HEENT Reports moist mucous membranes normocephalic and atraumatic Eyes PERRL and EOMs intact bilaterally General Eye ED: Negative for scleral icterus Neck no lymphadenopathy and supple Resp normal respiratory effort and clear to auscultation bilaterally Cardio no murmurs Rate: regular rate Rhythm: regular rhythm GI non-tender and non-distended Auscultation: normoactive bowel sounds Palpation: soft Back/Spine no CVA tenderness and normal ROM Extremity normal to inspection General Extremety ED: Negative for edema General Extremity: Negative for edema Neuro oriented x3, CN's II-XII intact bilaterally, no sensory deficits noted and gait normal Sensorium / Orientation: alert Motor Exam: strength 5/5 throughout Psych mental status grossly normal, thought process normal, cooperative, activity/motor behavior normal and denies homicidal ideation Mood & Affect: depressed Thought Content: suicidality Skin Lesions: no lesions Rashes: no rashes MDM MDM MDM Narrative Medical decision making narrative: Other than an alcohol 276, his labs and toxicology are unremarkable. He is medically cleared for psychiatric evaluation, but first we will observe him until the morning until he can metabolize his alcohol at which point he will be reevaluated and we will have crisis evaluate from there. He had an initial resting tachycardia which is now resolved. Lab Data Attestation: I reviewed the patient's lab results. Labs: Laboratory Results - last 24 hr 02/08/24 00:25 WBC 9.0 RBC 5.80 Hgb 17.8 H Hct 53.2 MCV 91.7 MCH 30.7 MCHC 33.5 RDW Std Deviation 42.5 RDW Coeff of [place] 12.7 Plt Count 283 MPV 10.4 Immature Gran % (Auto) 0.400 Neut % (Auto) 48.7 Lymph % (Auto) 42.2 H [place] % (Auto) 6.2 Eos % (Auto) 1.4 Baso % (Auto) 1.1 H Absolute Neuts (auto) 4.4 Absolute Lymphs (auto) 3.79 Nucleated RBC % 0 PT 12.8 INR 1.0 Sodium 139 Potassium 3.8 Chloride 106 Carbon Dioxide 26.0 Anion Gap 7 BUN 7 Creatinine 0.99 Estim Creat Clear Calc 126.24 Est GFR (MDRD) Af Amer 116 Est GFR (MDRD) Non-Af 96 BUN/Creatinine Ratio 7.1 L Glucose 125 H Calcium 8.6 Total Bilirubin 0.40 AST 27 ALT 42 Alkaline Phosphatase 80 Total Protein 8.8 H Albumin 4.4 Globulin 4.4 H Albumin/Globulin Ratio 1.0 Urine Opiates Screen NEGATIVE Urine Methadone Screen NEGATIVE Ur Barbiturates Screen NEGATIVE Ur Phencyclidine Scrn NEGATIVE Ur Amphetamines Screen NEGATIVE MDMA (Ecstasy) Screen NEGATIVE U Benzodiazepines Scrn NEGATIVE Urine Cocaine Screen NEGATIVE U Cannabinoids Screen NEGATIVE Ur Drug Screen Comment Ethyl Alcohol 276.0 Management Discussion w/another healthcare provider: Behavioral health Discharge Plan Triage Chief Complaint: Depression ED Provider: Tone Soria Dx/Rx/DC Orders Clinical Impression: Suicidal ideation, Alcohol intoxication Prescriptions: No Action NK Primary Care Provider: Care Physician,No Primary Referrals: Care Physician,No Primary [Primary Care Provider] -
[2024-02-08 00:36] LABS: Absolute Lymphocyte Count 3.79 X10^3/uL (0.83-4.51); Absolute Neutrophil Count 4.4 X10^3/uL (2.0-7.7); Basophil% 1.1 % (0-1); Eosinophil# 0.13 X10^3/uL; Eosinophils% 1.4 % (0-5); Hematocrit 53.2 % (40-54); Hemoglobin 17.8 g/dL (13.0-16.5); Lymphocyte # 3.79 X10^3/ul (0.83-4.51); Lymphocyte % 42.2 % (19-41); Mean Corp Hgb Conc 33.5 g/dL (32-36); Mean Corpuscular Hgb 30.7 pg (27.0-32.0); Mean Corpuscular Volume 91.7 fL (80-94); Mean Platelet Vol. 10.4 fl (6.2-12.0); Monocyte# 0.56 X10^3/uL; Monocyte% 6.2 % (0-10); NRBC Flagged by Analyzer 0 % (0-5); Neutrophil # 4.36 X10^3/uL (2.7-7.7); Neutrophil % 48.7 % (47-70); Platelet Count 283 K/mm3 (150-450); RBC Distribution Width CV 12.7 % (11.6-14.6); RBC Distribution Width SD 42.5 fl (35.1-43.9)
[2024-02-08 00:50] LABS: Amphetamine Urine VISTA NEGATIVE (<1000 ng/mL); Barbiturate Urine VISTA NEGATIVE (< 200 ng/mL); Benzodiazepine Urine VISTA NEGATIVE (< 200 ng/mL); Cocaine Urine VISTA NEGATIVE (< 300 ng/mL); Ecstacy Urine VISTA NEGATIVE (< 500 ng/mL); Methadone Urine VISTA NEGATIVE (< 300 ng/mL); PCP Urine VISTA NEGATIVE (< 25 ng/mL); THC Urine VISTA NEGATIVE (< 50 ng/mL); Vista UDS pH Range 5
[2024-02-08 00:52] LABS: Prothrombin Time (Protime)PT. 12.8 SECONDS (11.7-14.9)
[2024-02-08 00:54] LABS: AST(SGOT) 27 U/L (15-37); Alanine Aminotransfer ALT/SGPT 42 U/L (16-61); Albumin, Serum 4.4 g/dL (3.2-5.0); Alkaline Phosphatase 80 U/L (45-117); Anion Gap 7 (5-15); BUN 7 mg/dL (7-18); BUN/Creat Ratio 7.1 RATIO (10-20); Calcium,Total 8.6 mg/dL (8.5-10.1); Chloride 106 mmol/L (98-107); Creatinine, Serum 0.99 mg/dL (0.70-1.30); EST Glomerular Filtration Rate 96 mL/min (>60); Est Glom Filt Rate - Afr Amer 116 mL/min (>60); Estimated Creatinine Clearance 126.24 ml/min; Globulin 4.4 g/dL (2.2-4.2); Glucose 125 mg/dL (74-106); Potassium 3.8 mmol/L (3.5-5.1); Protein, Total 8.8 g/dL (6.4-8.2); Sodium Level 139 mmol/L (136-145)
--- NOTE | 2024-02-08 08:57 | NURSING ---
CALLED [facility], TALKED TO AASHISH
--- NOTE | 2024-02-08 09:06 | NURSING ---
FAXED CHART TO [facility]
== END 2024-02-08 10:52 | disposition home or self-care (01) ==
PROVIDERS: Emergency Provider Emergency Medicine; Visit Provider Emergency Medicine
DX: R45.851 Suicidal ideations (principal); F10.229 Alcohol dependence with intoxication, unspecified; F17.210 Nicotine dependence, cigarettes, uncomplicated
CPT/HCPCS: 80053; 80307; 80320; 85025; 85610; 99282; A4216; G0480